=== PATIENT | female | born 1955 | race African-American/Black ===

== ENCOUNTER 2021-01-22 11:05 | Emergency (ER) | payer MEDICARE, MEDICAID ==
[~2021-01-22] VITALS: Ht 165.1 cm; Wt 68.0 kg
[~2021-01-22 11:05] MED LIST: CALC500T62 PO; CARB-25; CARB1TAB20 PO; CARI350T27; CARI350T28 PO; DIAZ10TA4 PR; DIPH25CA83 PO; DOXE50CA4; DOXE50CA4 PO; ENAL5TAB21; FLONASE; IBUP-2029; METO10TA3; OMEP20CA14; OMEP20CA4 PO; OXCA600T20; OXCA600T5 PO; PROP20TA7; ROPI0.5T6 PO; ROPI1TAB14; SIMV-43 PO; SIMV-46; TRAM50TA3; VICODIN; ZOLP10TA2; ZOLP10TA2 PO; fluticasone spray
[2021-01-22] MEDS ORDERED: ASPIRIN 81MG TABLET PO ONE (12:15)
[2021-01-22] MEDS ORDERED: NITROGLYCERIN 0.4MG TABLET SL SL PRN (12:15)
[2021-01-22 13:52] LABS: BASOPHILS % 0.4 % (0.0-2.0); CHLORIDE 107 mEq/L (98-107); EOSINOPHILS % 1.5 % (0.0-5.0); HEMATOCRIT. 39.4 % (36.0-48.0); HEMOGLOBIN. 13.5 g/dL (12.0-16.0); LYMPHOCYTES % 36.8 % (20.0-50.0); MEAN CORPUSCULAR HEMOGLOBIN 31.8 pg (28.0-32.0); MEAN CORPUSCULAR VOLUME 92.5 fL (81.0-99.0); MEAN PLATELET VOLUME 6.6 fl (7.4-10.4); MONOCYTES % 5.6 % (2.0-8.0); NEUTROPHILS % 55.7 % (40.0-76.0); PLATELET 233 x1000/uL (130-400); RED BLOOD CELL COUNT 4.26 mill/uL (4.2-5.4); RED CELL DISTRIBUTION WIDTH 13.7 % (11.6-14.6)
[2021-01-22 14:41] VITALS: BP 167/69
== END 2021-01-22 14:56 | disposition home or self-care (01) ==
LOC: ER 11:05 → CANBEDREQ 22:21
DX: I20.0 Unstable angina (principal); I10 Essential (primary) hypertension; I11.0 Hypertensive heart disease with heart failure; I50.9 Heart failure, unspecified; E78.00 Pure hypercholesterolemia, unspecified; Z88.0 Allergy status to penicillin; Z88.6 Allergy status to analgesic agent; Z79.899 Other long term (current) drug therapy; Z98.890 Other specified postprocedural states
CPT/HCPCS: 36415; 80053; 83880; 84484; 85025; 93005; 99284